=== PATIENT | female | born 1960 | race African-American/Black ===

== ENCOUNTER 2016-10-24 06:08 | Emergency (ER) | payer OTHER ==
[~2016-10-24 06:08] MED LIST: ATORVASTATIN CA40 MG PO; Aspirin PO; DOCUSATE SODIU100 MG PO; HEPARIN 2525000 UNI1 IV; LOPRESSOR 12.12.5 MG PO; NITRO-BID OINT0.5 GM TOP; PLAVIX 75MG TAB75 MG PO; VITAMIN D1000 IU PO; [UNRECOGNIZED DRUG - OTHER] PO
--- NOTE | 2016-10-24 06:34 | ED CRITICAL CARE ---
History of Present Illness General Chief Complaint: Cardiopulmonary Resuscitation Stated Complaint: " BIBA UNRESPONSIVE" Source: family, EMS Exam Limitations: clinical condition Vital Signs & Intake/Output Vital Signs & Intake/Output . Allergies Coded Allergies: NO KNOWN ALLERGIES (06/03/15) Reconcile Medications [Aspirin] 325 MG PO DAILY Atorvastatin Calcium (Lipitor) 40 MG TAB 40 MG PO 1700 cholestrol Cholecalciferol (Vitamin D3) 1,000 IU TAB 1,000 IU PO DAILY HYPERPARATHYROIDISM Clopidogrel Bisulfate (Plavix) 75 MG TAB 75 MG PO DAILY heart Docusate Sodium 100 MG SGL 100 MG PO DAILY constipation Heparin (Heparin-1/2NS 25,000 Units/500) 25,000 UNIT BAG 1 UNIT IV IV acs Metoprolol Tartrate (Lopressor) 12.5 MG TAB 12.5 MG PO BID BP Nitroglycerin (Nitro-Bid Oint UD 0.5GM (1/2 INCH)) 0.5 GM ONT 0.5 GM TOP Q6 heart [NUTRALITE] 1 TAB PO DAILY SUPPLEMENT (Reported) Triage Nurses Notes Reviewed? yes Onset: Abrupt Duration: minute(s): Timing: single episode today Injury Environment: home Severity: severe Modifying Factors: Improves With: other (acls in field 37 minutes). Associated Symptoms: chest pressure HPI: 54-year-old woman with a history of an STEMI in 2015, diabetes, hypertension, hyperlipidemia presents in cardiac arrest. Per the medics she had chest pain around 5 AM. 911 was called at 520. The medics arrived at approximately 5:30 and found her in agonal respirations. She became asystolic as they rolled her over to transport. She was intubated in the field. She was given epi 4. ACLS was followed as per protocol. She remained asystolic versus PEA throughout. She arrived in PEA arrest in the ED at 6:08 AM. Past History Travel History Traveled to [place] past 21 day No Medical History Any Pertinent Medical History? 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 No Review of Systems Review of Systems Constitutional: Reports: no symptoms. Eyes: Reports: no symptoms. Ears, Nose, Throat, Mouth: Reports: no symptoms. Respiratory: Reports: no symptoms. Cardiovascular: Reports: no symptoms. Gastrointestinal/Abdominal: Reports: no symptoms. Genitourinary: Reports: no symptoms. Musculoskeletal: Reports: no symptoms. Skin: Reports: no symptoms. Neurological/Psychological: Reports: no symptoms. All Other Systems: Reviewed and Negative Physical Exam Physical Exam General Appearance: well developed/nourished, unresponsive Head: atraumatic Eyes: Bilateral: other (fixed dilated no corneal refle). Ears, Nose, Throat, Mouth: pallor Neck: normal inspection, supple, full range of motion Respiratory: equal breath sounds with bag mask ventilation. No spontaneous respiratory effort Cardiovascular: equal femoral and carotid pulses with chest compression. No palpable pulse without chest compressions Gastrointestinal: soft, non-tender Back: normal inspection Extremities: cool extremities, with pallor Neurologic/Psych: no corneal reflexes. Pupils fixed and dilated. No spontaneous movement Skin: cyanosis Core Measures ACS in differential dx? No CVA/TIA Diagnosis: No Severe Sepsis Present: No Septic Shock Present: No Progress Differential Diagnoses I considered the following diagnoses in my evaluation of the patient: Myocardial infarction versus PE versus CVA Plan of Care: ET tube placement confirmed with auscultation, with equal breath sounds with bag mask ventilation. Patient was in PEA arrest upon arrival. The patient received epi 4, bicarbonate 3, and ACLS as per protocol. The patient arrived 6:08 AM. The patient was pronounced at 6:32 AM. Total "code time" is approximately 1 hour, with a total of 8 epis and 3 bicarbonates given. ME contacted... no case. I informed family who were in the ED and spent time at the bedside. Initial ED EKG: none Rhythm Strip: pea --> asystole Departure Departure Disposition: Condition: Stable Clinical Impression Primary Impression: Cardiac arrest Referrals: PATIENT HAS NO PRIMARY CARE DR (PCP/Family) Departure Forms: General Discharge Information Critical Care Note Critical Care Note Critical Care Time: 30-74 min
== END 2016-10-24 06:32 | disposition expired ==
LOC: ERH 06:08
DX: I46.9 Cardiac arrest, cause unspecified (principal); R07.89 Other chest pain
CPT/HCPCS: 1387; 94799; 96374; 96375; 99291